=== PATIENT | male | born 1945 | race Caucasian/White ===

== ENCOUNTER 2017-01-18 18:16 | Emergency (ER) | payer MEDICARE, OTHER ==
[~2017-01-18 18:16] MED LIST: CIPR500T93 PO
[2017-01-18 18:21] VITALS: BP 138/74; PULSE 59; RESP 20; TEMP 98; O2SAT 99
--- NOTE | 2017-01-18 18:47 | PD ---
HPI Chief Complaint: Musculoskeletal Complaint Time Seen by Provider: 18:30 Travel History International Travel<30 days: No Contact w/Intl Traveler<30days: No Traveled to known affect area: No History of Present Illness HPI 71 year-old male presents to the emergency room for evaluation of right neck pain radiating down the right upper extremity for the past several weeks. Patient was boogie-boarding on 12/11/2016 when he crashed into a fence. He struck the left side of his face and got a black eye but pain started hurting on the right side of his neck. He went to an urgent care center 13 days later and was diagnosed with cervical strain but did not have any imaging. He was discharged with prescription for Robaxin and have her followed up with a primary care physician. States since then any time he moves his neck a certain way he had sharp severe, stabbing pain in the neck. There is associated paresthesias in the right upper arm stopping at the elbow. Pain is not always present. He has not needed to take anything more than the prescribed Robaxin. PFSH Past Surgical History Genitourinary Surgery: Yes (TURP 2014) Tonsillectomy: Yes Other Surgery: Yes (L. LEG LYMPH NODE REMOVAL) Social History Alcohol Use: Yes (SOCIALLY) Tobacco Use: No Substance Use: No Allergies-Medications (Allergen,Severity, Reaction): Coded Allergies: lidocaine (Unverified Allergy, Severe, Cardiac Arrest, 12/15/16) sulfamethoxazole (Unverified Allergy, Severe, Nausea/Vomiting, 12/15/16) trimethoprim (Unverified Allergy, Severe, Nausea/Vomiting, 12/15/16) Reported Meds & Prescriptions Reported Meds & Active Scripts Active Reported Robaxin (Methocarbamol) 750 Mg Tab 750 Mg PO Q4H PRN Review of Systems Except as stated in HPI: all other systems reviewed are Neg Physical Exam Narrative GENERAL: Well-nourished, well-developed male in no acute distress. Afebrile. Ambulatory. SKIN: Focused skin assessment warm/dry. HEAD: Normocephalic. EYES: No scleral icterus. No injection or drainage. NECK: Supple, trachea midline. No JVD or lymphadenopathy. No significant midline tenderness. Tenderness to palpation of the right trapezius muscle. CARDIOVASCULAR: Regular rate and rhythm without murmurs, gallops, or rubs. RESPIRATORY: Breath sounds equal bilaterally. No accessory muscle use. BACK: Nontender without obvious deformity. No CVA tenderness. Data Data Last Documented VS Vital Signs Date Time Temp Pulse Resp B/P (MAP) Pulse Ox O2 Delivery O2 Flow Rate FiO2 01/18/17 18:49 16 01/18/17 18:21 98.0 59 138/74 (95) [address] Cerv Spine W/O Contrast (01/18/17 ) MDM Medical Decision Making Medical Screen Exam Complete: Yes Emergency Medical Condition: Yes Medical Record Reviewed: Yes Differential Diagnosis Cervical strain, fracture, spasm, degenerative disc disease, bulging disc Narrative Course 71-year-old male presents to the emergency room for evaluation of right-sided neck pain that radiates down his right upper arm for the past several weeks. Patient injured it by slamming straight into a sand bar while on his [employer] board on December 11. He went to an urgent care on December 24 90 told him he had cervical strain and discharged him with Robaxin without any imaging. Patient states pain is persistent in the emergency room direction he feels sharp stabbing pain shooting down his right upper extremity. He also hears clicking which he hasn't before. Patient has not followed up with his primary care physician. Reports occasional paresthesias down to the elbow of the right upper extremity. He has full range of motion of the right upper extremity with 2+ radial pulse. There is no midline tenderness of the cervical spine. There is tenderness to palpation of the right paraspinous musculature/trapezius muscle. Given history of radiculopathy and trauma, CT was ordered which shows multiple nonacute findings. Patient made aware of findings and told to follow up with a primary care physician for outpatient MRI. Told to return for worsening symptoms. He understands and agrees to plan. Diagnosis Primary Impression: Spinal stenosis, cervical region Additional Impression: Spondylolysis of cervical region Referrals: Primary Care Physician Additional Instructions: Rest and drink plenty of fluids. Take Robaxin as directed, as needed for pain. Take 250 mg naproxen with food as directed, as needed for pain. Apply ice to the affected area for 20 minutes at a time, as needed for pain and swelling. Follow-up with a primary care physician. Return to the emergency room for worsening symptoms. Disposition: 01 DISCHARGE HOME Condition: Stable Melanie Segura Jan 18, 2017 18:47
[2017-01-18] MEDS ORDERED: ROBA750T PO (18:54)
--- NOTE | 2017-01-18 19:42 | RADRPT ---
EXAM DATE/TIME: 01/18/2017 19:13 [facility] COMPARISON: No previous studies available for comparison. INDICATIONS : Right neck pain radiating into right shoulder and arm. RADIATION DOSE: 26.50 CTDIvol (mGy) MEDICAL HISTORY : None SURGICAL HISTORY : None. ENCOUNTER: Initial ACUITY: 1 month PAIN SCALE: 8/10 LOCATION: Right neck TECHNIQUE: Volumetric scanning of the cervical spine was performed. Multiplanar reconstructions in the sagittal, coronal and oblique axial planes were performed. Using automated exposure control and adjustment o f the mA and/or kV according to patient size, radiation dose was kept as low as reasonably achievable to obtain optimal diagnostic quality images. DICOM format image data is available electronically f or review and comparison. FINDINGS: Diffuse cervical spondylosis is noted. Mild chronic compression deformity involving C5 is noted. Mi ld spinal stenosis is noted at C5-6. Moderate bilateral foraminal narrowing is noted at C4-5 and C5- 6 and moderate left neural foraminal narrowing is noted at C3-4 and C6-7. The bony relationship and alignment between C1 and C2 is well maintained. There is no acute fracture or prevertebral soft tiss ue swelling. CONCLUSION: 1. No acute fracture or prevertebral soft tissue swelling. 2. Mild spinal stenosis at C5-6 and moderate bilateral foraminal narrowing. 3. Moderate bilateral foraminal narrowing at C4-5 without spinal stenosis. 4. Moderate left neural foraminal narrowing at C3-4 and C6-7. 5. Diffuse cervical spondylosis. Barrington Parham MD on January 18, 2017 at 19:34 Board Certified Radiologist. This report was verified electronically.
== END 2017-01-18 19:58 | disposition home or self-care (01) ==
LOC: PHEFT 18:16
DX: M48.02 Spinal stenosis, cervical region (principal); M43.02 Spondylolysis, cervical region; W22.8XXA Striking against or struck by other objects, initial encounter; Y93.18 Activity, surfing, windsurfing and boogie boarding; Y92.832 Beach as the place of occurrence of the external cause
CPT/HCPCS: 72125; 99284